=== PATIENT | female | born 1990 | race Caucasian/White ===

== ENCOUNTER 2018-02-08 13:13 | Emergency (ER) | payer BC ==
[~2018-02-08] VITALS: Ht 167.6 cm; Wt 145.2 kg
[2018-02-08 13:22] VITALS: BP 137/79
[2018-02-08] MEDS ORDERED: ZANAFLEX4 MG PO (13:26)
[2018-02-08] MEDS ORDERED: NAPROSYN500 MG PO (13:26)
[2018-02-08 13:35] LABS: URINE BILIRUBIN NEGATIVE (Negative); URINE BLOOD NEGATIVE (Negative); URINE CLARITY CLEAR; URINE COLOR YELLOW; URINE GLUCOSE-RANDOM* NEGATIVE (Negative); URINE KETONES NEGATIVE (Negative); URINE LEUKOCYTES-REFLEX NEGATIVE (Negative); URINE NITRITE-REFLEX NEGATIVE (Negative); URINE PROTEIN (DIPSTICK) NEGATIVE (Negative); URINE SPECIFIC GRAVITY 1.025 (1.005-1.035); URINE UROBILINOGEN 0.2 E.U./dl (0.2-1.0)
[2018-02-08] MEDS ORDERED: MEDROLDOSEPACK PO (14:38)
[2018-02-08] MEDS ORDERED: NORCO 5-325 TA1 EACH PO (14:38)
== END 2018-02-08 14:12 | disposition home or self-care (01) ==
LOC: ER 13:13
PROVIDERS: Physician Assistant
DX: M54.41 Lumbago with sciatica, right side (principal)